=== PATIENT | male | born 1955 | race Caucasian/White ===

== ENCOUNTER → 2018-07-15 07:21 | Outpatient (CLI) | payer MEDICARE ==
[2012-02-14 10:34] VITALS: BMI 26.6
== END | disposition home or self-care (01) ==
LOC: D.US 07:21
DX: R11.0 Nausea (principal)

== ENCOUNTER → 2018-09-13 12:59 | Outpatient (CLI) | payer MEDICARE ==
[2012-02-14 10:34] VITALS: BMI 26.6
== END | disposition home or self-care (01) ==
LOC: D.MRI 12:59
DX: M54.2 Cervicalgia (principal); M54.5 Low back pain

== ENCOUNTER → 2019-06-06 08:48 | Outpatient (CLI) | payer OTHER, MEDICARE ==
[2012-02-14 10:34] VITALS: BMI 26.6
--- NOTE | ~2019-06-06 | ST ---
PATIENT:AMARIANI KESSLER JR MEDICAL RECORD: [id number] SEX: M LOCATION:[facility] ORDER #: ADMISSION DATE: 06/06/19 AGE OF PATIENT: 63 REFERRING PHYSICIAN: INTERPRETING PHYSICIAN: TYRELL HOGUE MD DATE OF SERVICE: 06/06/2019 PROCEDURE: Nuclear stress test. INDICATIONS: Angina, shortness of breath, COPD, hypertension. He was exercised on standard Lexiscan protocol with 27 mCi of sestamibi injected at peak stress, 9 mCi used previously for rest images. FINDINGS: Gated SPECT reveals preserved ejection fraction at 65% with good wall motion and thickening and brightening throughout all segments. SPECT imaging Cardiolite was used as myocardial fusion agent. There is homogeneous uptake throughout all segments at rest and stress with no evidence of inducible ischemia or previous infarction. OVERALL IMPRESSION: 1. This is a normal nuclear stress test with no evidence of inducible ischemia or previous infarction. 2. Gated SPECT reveals a preserved ejection fraction at 65%. In this patient with ongoing symptomatology, the current scan does not suggest the presence of hemodynamically significant coronary artery disease. Evaluate noncardiac etiology of chest pain. TRANSINT:[id number] Voice Confirmation ID: [id number] DOCUMENT ID: [id number] TYRELL HOGUE MD CC: LACHELLE MAYEN MD [id number] DICTATION DATE: 06/06/19 1246 [employer] VENDOR: 06/06/19 2315 [facility] [address] [id number]
== END | disposition home or self-care (01) ==
LOC: D.HCCARDIO 08:48
PROVIDERS: ATTEND Internal Medicine Interventional Cardiology
DX: I20.9 Angina pectoris, unspecified (principal)